=== PATIENT | male | born 1950 | race Caucasian/White ===

== ENCOUNTER 2017-12-03 12:13 | Emergency (ER) | payer MEDICARE ==
[2017-12-03] MEDS ORDERED: Lidocaine Viscous Sol 2% 15 ml UD Cup ONE (12:29)
== END 2017-12-03 13:16 | disposition home or self-care (01) ==
LOC: SCSER 12:13
DX: K59.00 Constipation, unspecified (principal); I10 Essential (primary) hypertension; Z79.899 Other long term (current) drug therapy; Z79.82 Long term (current) use of aspirin; Z79.4 Long term (current) use of insulin
CPT/HCPCS: 99284